=== PATIENT | female | born 1995 | race Caucasian/White ===

== ENCOUNTER 2022-11-20 17:06 | Emergency (ER) | payer MEDICARE, MEDICAID, SELFPAY ==
[2022-11-20 17:13] VITALS: BP 100/69; PULSE 99; RESP 20; TEMP 37.1; O2SAT 98
--- NOTE | 2022-11-20 17:35 | W.ED.GENAD ---
Discharge Plan Disposition Patient Disposition: Home Discharge Details Clinical Impression: Otitis media Primary Care Provider: Mackenzie,Local ED Provider: Brandin Ramos Home Meds and New Rx's Prescriptions: New amoxicillin-pot clavulanate 875-125 mg tablet 1 tab PO Q12H 9 Days Qty: 18 0RF Continued levothyroxine [Synthroid] 75 MCG tablet 50 mcg PO DAILY Patient Comments: correct dosage not known Discharge Instructions Instructions: Ear Infection (ED) Additional Instructions: At this time I feel that you have a persistent ear infection of the right ear. We have changed your antibiotic and please take this for the full 10 days and do not miss any doses. If you have any new or significant worsening of symptoms feel free to return to the emergency department for reassessment otherwise it is important that you follow-up with your primary care provider for recheck early next week. Referrals: Primary Care Provider [Outside] - 3 days Discharge Data Discharge Date/Time-TO BE ENTERED AT DEPARTURE: 11/20/22 17:53 Medical Decision Making Patient presenting to the emergency department for chief complaint of right ear muffled and slight discomfort that is continued in spite of finishing up her amoxicillin. Patient denies any drainage from the ear, denies any full loss of hearing, denies fever chills or other symptoms. Physical exam shows significant purulence and bulging with loss of landmarks of the right TM, no lymphadenopathy, no signs of malignant otitis externa, no mastoiditis, exam otherwise nondiagnostic. I am concerned for patient not having full resolution of acute otitis media. We will place patient on Augmentin and did place patient on follow-up with primary care preferably for early next week due to patient continuing to have symptoms in spite of antibiotics. At this time I feel no reason for admission or aggressive therapy or CT imaging. After discussion of diagnosis and plan of care patient has no further needs, questions, or concerns and states clear understanding to return to the emergency department for any worsening symptoms. This documentation was generated using [employer] system, please disregard any oddities of phrase or misspellings. HPI General Mode of arrival: ambulatory. Date/Time Provider Initiated Documentation: 11/20/22 17:10. Limitations to Documentation: no limitations. Information obtained by: patient and RN notes reviewed. History of Present Illness 27 year old F presents to the emergency department with the chief complaint of Continued discomfort right ear, described as mild, Quality is described as other (Pressure), and is localized to the right (ear). Patient started experiencing this week(s) (1) and it has been constant. Medication improves symptom(s), No exacerbating factors reported . Patient notes no other symptoms.. Patient did receive the following treatments prior to arrival, none Related Data Home Medications Medication Instructions Recorded Confirmed levothyroxine 75 mcg tablet 50 mcg PO DAILY 10/11/14 11/20/22 (Synthroid) amoxicillin 875 mg-potassium 1 tab PO Q12H 9 days #18 tabs 11/20/22 clavulanate 125 mg tablet Previous Rx's Medication Instructions Recorded amoxicillin 875 mg-potassium 1 tab PO Q12H 9 days #18 tabs 11/20/22 clavulanate 125 mg tablet Allergies Allergy/AdvReac Type Severity Reaction Status Date / Time No Known Allergies Allergy Unverified 10/11/14 23:55 General Stated Complaint: EarProblem LIVIA: 4 Review of Systems Constitutional Constitutional: Denies chills, Denies fever(s), Denies headache(s) and Denies malaise ENT Ears, Nose, Mouth, and Throat: Reports as per HPI, Denies ear discharge, Reports otalgia, Denies headache(s), Denies nasal congestion, Denies nasal discharge, Denies neck mass and Denies sore throat Cardiovascular Cardiovascular: Denies dyspnea Respiratory Respiratory: Denies cough, Denies dyspnea and Denies wheezing Integumentary/Breasts Skin/Breast: Denies rash Neurologic Neurologic: Denies headache(s) Hematologic/Lymphatic Hematologic/Lymphatic: Denies lymphadenopathy Allergic/Immunologic Allergic/Immunologic: Denies wheezing PFSH All Active Problems (Updated 11/20/22 @ 17:40 by Brandin Ramos NP) Otitis media (Acute) Social History Smoking/Tobacco Use Status: Never Smoking risk assessment performed?: Yes Drug use: Never Substance use type: does not use Housing: apartment Do you feel safe at home: Yes Do you feel safe in your relationship?: Yes Exam Const General: cooperative, comfortable and no acute distress Orientation: alert and awake [facility] Head: normal to inspection, normocephalic and atraumatic Ears: EAC's normal, mastoids normal, hearing grossly impaired on the right and TM abnormal bulging on the right, wth effusion purulent on the right, with fluid behind the TM on the right, with loss of landmarks on the right and obstructed by cerumen (Partially) on the right; not erythematous General nose exam: external nose normal Face and sinus: no erythema Neck Neck: normal visual inspection, full ROM, no lymphadenopathy, no meningeal signs, trachea midline and supple Resp Effort & Inspection: normal respiratory effort and able to speak in complete sentences Auscultation: clear to auscultation bilaterally Cardio Rate: regular rate Rhythm: regular rhythm Heart Sounds: S1 normal, S2 normal, normal S1 and S2, no click, no gallops, no murmurs and no rubs Skin General skin exam: no rashes or lesions noted and dry skin (warm) Neuro General: patient alert, patient awake, patient oriented x3, gait normal and moves all extremities Cognition: normal cognition Speech: speech normal Course Vital Signs Vital signs: Vital Signs Temperature 37.1 C 11/20/22 17:13 Pulse 99 H 11/20/22 17:13 Respiratory Rate 20 11/20/22 17:13 Blood Pressure 100/69 11/20/22 17:13 Pulse Oximetry 98 11/20/22 17:13 Temperature 37.1 C 11/20/22 17:13 Temperature Source Temporal Artery Scan 11/20/22 17:13 Pulse 99 H 11/20/22 17:13 Respiratory Rate 20 11/20/22 17:13 Respiratory Effort Normal, Non-Labored 11/20/22 17:23 Blood Pressure 100/69 11/20/22 17:13 Blood Pressure Position Sitting 11/20/22 17:13 Pulse Oximetry 98 11/20/22 17:13 Oxygen Delivery Method Room Air 11/20/22 17:13 Oxygen Flow Rate 0 11/20/22 17:13 Pain Level 0 11/20/22 17:13
[2022-11-20] MEDS: Amox. 875/Clav. 125, 2 TABS/BTL 1 TAB PO (17:49)
== END 2022-11-20 17:53 | disposition home or self-care (01) ==
PROVIDERS: Emergency Provider Nurse Practitioner Family
DX: H66.91 Otitis media, unspecified, right ear (principal); H91.91 Unspecified hearing loss, right ear
CPT/HCPCS: 99283